=== PATIENT | female | born 1950 | race Caucasian/White ===

== ENCOUNTER 2021-10-12 11:50 | Outpatient (CLI) | payer MEDICARE | END 2021-10-12 11:51 | disposition home or self-care (01) | LOC: CSHRAD 11:50 | PROVIDERS: ATTEND Family Medicine | DX: M25.561 Pain in right knee (principal); M25.551 Pain in right hip; M17.11 Unilateral primary osteoarthritis, right knee; M16.11 Unilateral primary osteoarthritis, right hip; Z98.890 Other specified postprocedural states ==